=== PATIENT | male | born 1985 | race Caucasian/White ===

== ENCOUNTER 2017-04-16 06:30 | Day surgery (SDC) | payer OTHER ==
[~2017-04-16] VITALS: Ht 177.8 cm; Wt 90.7 kg
[2017-04-16] MEDS ORDERED: LR 1,000 ML IV.SOLN IV ONE (06:31)
[2017-04-16] MEDS ORDERED: fentaNYL CITRATE/PF 100 MCG/2 ML AMP IVP ONE (06:31)
[2017-04-16] MEDS ORDERED: NS IRRIG SOLN 1000 ML IR ONE (06:31)
[2017-04-16] MEDS ORDERED: SEVOFLURANE 15 MIN GAS INH ONE (06:31)
[2017-04-16] MEDS ORDERED: OFLOXACIN 0.3%, 5 ML EAR DROPS OT ONE (06:31)
[2017-04-16] MEDS ORDERED: PROPOFOL 200MG/ 20ML VIAL (DIPRIVAN) IV ONE (06:31)
[2017-04-16] MEDS ORDERED: MIDAZOLAM HCL 5 MG/ML VIAL (VERSED) IV ONE (06:31)
[2017-04-16 10:38] VITALS: BP_SYST 116
== END 2017-04-16 11:25 | disposition home or self-care (01) ==
LOC: SDS 06:30 → SMU 06:30 → SDS 11:25
PROVIDERS: ATTEND Otolaryngology
DX: H65.491 Other chronic nonsuppurative otitis media, right ear (principal); H90.2 Conductive hearing loss, unspecified; Z98.890 Other specified postprocedural states
CPT/HCPCS: 69436; 88738; J2250; J2704; J3010; J7120; L8699